=== PATIENT | male | born 1990 | race Caucasian/White ===

== ENCOUNTER 2020-07-18 08:40 | Emergency (ER) | payer OTHER ==
[~2020-07-18] VITALS: Ht 170.2 cm; Wt 89.8 kg
== END 2020-07-18 14:26 | disposition home or self-care (01) ==
LOC: ER 08:40
DX: S93.401A Sprain of unspecified ligament of right ankle, initial encounter (principal); X50.3XXA Overexertion from repetitive movements, initial encounter; Y93.89 Activity, other specified; Y92.098 Other place in other non-institutional residence as the place of occurrence of the external cause; Y99.8 Other external cause status

== ENCOUNTER 2021-01-08 10:25 | Outpatient (CLI) | payer OTHER | END 2021-01-08 10:30 | disposition home or self-care (01) | LOC: RAD 10:25 | PROVIDERS: ATTEND General Practice | DX: M54.2 Cervicalgia (principal) ==

== ENCOUNTER → 2021-01-11 09:28 | Outpatient (CLI) | payer OTHER | END | disposition home or self-care (01) | LOC: LAB 09:28 | PROVIDERS: ATTEND General Practice | DX: R68.89 Other general symptoms and signs (principal); R79.89 Other specified abnormal findings of blood chemistry ==

== ENCOUNTER 2021-09-27 10:06 | Outpatient (CLI) | payer OTHER | END 2021-09-27 10:08 | disposition home or self-care (01) | LOC: LAB 10:06 | PROVIDERS: ATTEND Pediatrics | DX: Z20.822 Contact with and (suspected) exposure to COVID-19 (principal); J09.X2 Influenza due to identified novel influenza A virus with other respiratory manifestations; J15.7 Pneumonia due to Mycoplasma pneumoniae ==

== ENCOUNTER 2022-04-01 10:11 | Outpatient (CLI) | payer OTHER | END 2022-04-01 10:19 | disposition home or self-care (01) | LOC: LAB 10:11 | PROVIDERS: ATTEND Pediatrics | DX: Z13.1 Encounter for screening for diabetes mellitus (principal) ==